=== PATIENT | female | born 1980 | race Hispanic/Latino ===

== ENCOUNTER 2020-06-26 14:22 | Outpatient (CLI) | payer OTHER ==
--- NOTE | 2020-06-26 15:56 | RAD ---
LEFT FOOT 3 VIEWS: HISTORY: Injury, particularly her 5th toe several weeks ago. FINDINGS: There is some slight heterogeneous trabecular markings within the distal phalanx of the great toe, bu t I cannot demonstrate any convincing evidence for acute fracture or dislocation. IMPRESSION: No evidence for acute fracture or dislocation. POS: RRE
== END 2020-06-26 14:23 | disposition home or self-care (01) ==
LOC: SCSRAD 14:22
PROVIDERS: ATTEND Family Medicine
DX: M79.672 Pain in left foot (principal)